=== PATIENT | male | born 1955 | race Caucasian/White ===

== ENCOUNTER 2016-02-20 12:29 | Outpatient (CLI) | payer OTHER ==
[2015-09-06 12:35] VITALS: O2SAT 99
== END 2016-02-20 12:30 | disposition home or self-care (01) | DRG 561 ==
LOC: CONVCARE 12:29
PROVIDERS: ATTEND Orthopaedic Surgery
DX: S72.301D Unspecified fracture of shaft of right femur, subsequent encounter for closed fracture with routine healing (principal)
CPT/HCPCS: 73552

== ENCOUNTER 2016-04-16 15:22 | Outpatient (CLI) | payer OTHER ==
[2015-09-06 12:35] VITALS: O2SAT 99
== END 2016-04-16 15:23 | disposition home or self-care (01) | DRG 561 ==
LOC: CONVCARE 15:22
PROVIDERS: ATTEND Orthopaedic Surgery
DX: S72.301D Unspecified fracture of shaft of right femur, subsequent encounter for closed fracture with routine healing (principal)
CPT/HCPCS: 73552

== ENCOUNTER 2016-07-16 06:28 | Emergency (ER) | payer OTHER ==
[2016-07-16 06:42] VITALS: TEMP 98.2
[2016-07-16] MEDS ORDERED: SODIUM CHLORIDE 0.9% 1000ML 1,000 ML IV ONE (06:51)
[2016-07-16] MEDS ORDERED: ONDANSETRON 4 MG ODT BU ONE (06:52)
[2016-07-16] MEDS ORDERED: KETOROLAC TROMETHAMINE 30 MG/ML SOL IV ONE (06:52)
[2016-07-16] MEDS ORDERED: KETOROLAC TROMETHAMINE 30 MG/ML SOL ONE (07:05)
[2016-07-16 07:24] LABS: BASOPHILS % (AUTO) 1 % (0-3); EOSINOPHILS % (AUTO) 4 % (0-9); HEMATOCRIT 38 % (39-53); MEAN CORPUSCULAR HGB CONC 35.2 gm/dl (32.0-36.0); MEAN CORPUSCULAR VOLUME 86 fL (80-100); MONOCYTES % (AUTO) 5.6 % (0-12); NEUTROPHILS % (AUTO) 74.7 % (37-80)
[2016-07-16 07:29] LABS: CALCIUM 8.6 mg/dl (8.5-10.1); POTASSIUM 5.1 mMol/L (3.5-5.1)
[2016-07-16] MEDS ORDERED: INSULIN HUMAN REGULAR 100 U/ML SOL SC ONE (07:41)
[2016-07-16 07:52] VITALS: O2SAT 98
[2016-07-16 07:53] VITALS: BP 129/64; PULSE 73; RESP 16
[2016-07-16] MEDS ORDERED: INSULIN HUMAN REGULAR 100 U/ML SOL ONE (08:02)
== END 2016-07-16 08:53 | disposition home or self-care (01) | DRG 103 ==
LOC: ED 06:28
DX: R51 Headache (principal); E11.65 Type 2 diabetes mellitus with hyperglycemia; Z79.84 Long term (current) use of oral hypoglycemic drugs; E86.0 Dehydration
CPT/HCPCS: 36415; 80048; 85025; 96365; 96372; 96374; 99284; 99285; J1815; J1885

== ENCOUNTER 2017-04-25 07:28 | Emergency (ER) | payer OTHER ==
[2017-04-25] MEDS ORDERED: ASPIRIN 81 MG CHEWABLE CTB PO ONE (07:45)
[2017-04-25] MEDS ORDERED: METOPROLOL TARTRATE 25 MG TAB PO ONE (07:46)
[2017-04-25] MEDS ORDERED: ASPIRIN 81 MG CHEWABLE CTB ONE (07:47)
[2017-04-25] MEDS ORDERED: NITROGLYCERIN 0.4 MG TAB SL ONE (07:47)
[2017-04-25] MEDS: NITROGLYCERIN 0.4 MG TAB SL PRN ×3 (07:49→08:22)
[2017-04-25 07:52] LABS: BASOPHILS % (AUTO) 1 % (0-3); EOSINOPHILS % (AUTO) 2 % (0-9); HEMATOCRIT 42 % (39-53); MEAN CORPUSCULAR HGB CONC 33.7 gm/dl (32.0-36.0); MEAN CORPUSCULAR VOLUME 90 fL (80-100); MONOCYTES % (AUTO) 7.5 % (0-12); NEUTROPHILS % (AUTO) 70.9 % (37-80)
[2017-04-25 08:06] LABS: ALBUMIN 3.5 gm/dl (3.4-5.0); ALT 55 IU/L (14-63); CALCIUM 9.3 mg/dl (8.5-10.1); GLOM FILT RATE 65 mL/min (>60); POTASSIUM 4.6 mMol/L (3.5-5.1); SODIUM 140 mMol/L (136-145)
[2017-04-25] MEDS ORDERED: NITROGLYCERIN 0.1 MG/HR TD ONE (08:40)
[2017-04-25] MEDS ORDERED: NITROGLYCERIN 0.4 MG/HOUR PATCH TD ONE (08:40)
[2017-04-25] MEDS ORDERED: NITROGLYCERIN 0.1 MG/HR ONE (08:43)
[2017-04-25] MEDS ORDERED: ENOXAPARIN 100 MG SOL SC ONE ×2 (08:49→08:56)
[2017-04-25] MEDS ORDERED: TICAGRELOR 90 MG TAB PO ONE ×2 (08:50→08:56)
[2017-04-25] MEDS ORDERED: METOPROLOL TARTRATE 25 MG TAB ONE (08:52)
[2017-04-25 09:10] VITALS: TEMP 99.1
[2017-04-25 09:31] VITALS: BP 157/88; PULSE 93; RESP 14; O2SAT 97
== END 2017-04-25 09:41 | disposition short-term general hospital (02) | DRG 311 ==
LOC: ED 07:28
DX: I20.0 Unstable angina (principal)
CPT/HCPCS: 71045; 80053; 84484; 85025; 85378; 85610; 85730; 93005; 99285; J1650; A9270-GY

== ENCOUNTER 2017-09-18 05:40 | Emergency (ER) | payer OTHER ==
[2017-09-18] MEDS ORDERED: SODIUM CHLORIDE 0.9% 1000ML 1,000 ML IV ONE ×2 (06:05→06:06)
[2017-09-18] MEDS ORDERED: LISINOPRIL 5 MG TAB PO ONE ×2 (06:06→07:08)
[2017-09-18] MEDS ORDERED: LISINOPRIL 5 MG TAB ONE ×2 (06:12→07:15)
[2017-09-18 06:30] LABS: BASOPHILS % (AUTO) 2 % (0-3); EOSINOPHILS % (AUTO) 3 % (0-9); HEMATOCRIT 40 % (39-53); HEMOGLOBIN 12.9 gm/dl (13.5-17.7); LYMPHOCYTES % (AUTO) 9.4 % (10-50); MEAN CORPUSCULAR HEMOGLOBIN 28.5 pg (27.0-32.0); MEAN CORPUSCULAR HGB CONC 32.6 gm/dl (32.0-36.0); MEAN CORPUSCULAR VOLUME 88 fL (80-100); MONOCYTES % (AUTO) 7.4 % (0-12); NEUTROPHILS % (AUTO) 78.2 % (37-80)
[2017-09-18 06:33] LABS: ALBUMIN 3.4 gm/dl (3.4-5.0); BILIRUBIN,TOTAL 0.4 mg/dl (0.2-1.0); CALCIUM 8.6 mg/dl (8.5-10.1); CREATININE 1.18 mg/dl (0.80-1.30); CRP INFLAMMATORY 0.1 mg/dl (0.00-0.33); POTASSIUM 4.7 mMol/L (3.5-5.1); THYROID STIMULATING HORMONE 3.32 uIU/ml (0.358-3.740); TOTAL PROTEIN 7.1 gm/dl (6.4-8.2)
[2017-09-18 06:38] LABS: APPEARANCE,URINE Clear; BILIRUBIN,URINE NEGATIVE (NEGATIVE); COLOR,URINE Yellow; GLUCOSE, URINE (UA) 2+ (NEGATIVE); KETONES,URINE NEGATIVE (NEGATIVE); LEUKOCYTE ESTERASE ,URINE NEGATIVE (NEGATIVE); NITRATE,URINE NEGATIVE (NEGATIVE); OCCULT BLOOD,URINE TRACE INTACT (NEG-TRACE); PH,URINE 5.5; UROBILINOGEN,URINE 0.2 (0.2-1.0 EU)
[2017-09-18 06:48] LABS: BACTERIA NEGATIVE (< 1+); CRYSTALS NEGATIVE (0-3 AVE/HPF); EPITHELIAL CELLS NEGATIVE (SQUAMOUS); WBC,URINE NEG (0-5AV/HPF)
[2017-09-18 07:11] VITALS: O2SAT 99
[2017-09-18 09:20] VITALS: BP 161/90; PULSE 74; RESP 18; TEMP 97.4
== END 2017-09-18 09:10 | disposition home or self-care (01) | DRG 948 ==
LOC: ED 05:40
DX: R53.83 Other fatigue (principal); E11.9 Type 2 diabetes mellitus without complications; I10 Essential (primary) hypertension; E78.5 Hyperlipidemia, unspecified; E03.9 Hypothyroidism, unspecified; Z72.820 Sleep deprivation
CPT/HCPCS: 36415; 70551; 80053; 81001; 84443; 85025; 96365; 99283; 99285; A9270-GY

== ENCOUNTER 2017-10-09 07:27 | Day surgery (SDC) | payer OTHER ==
[2017-10-09] MEDS ORDERED: LIDOCAINE HCL 1% MPF 30 SOL ONE (07:52)
[2017-10-09] MEDS ORDERED: PROPOFOL 500 MG/50 ML EMU IV ONE (07:52)
[2017-10-09 09:29] VITALS: RESP 18
[2017-10-09 09:45] VITALS: BP 146/81; PULSE 74; TEMP 97.4; O2SAT 99
== END 2017-10-09 10:10 | disposition home or self-care (01) | DRG 638 ==
LOC: SURG 07:27
PROVIDERS: ATTEND Surgery
DX: E11.9 Type 2 diabetes mellitus without complications (principal); K57.32 Diverticulitis of large intestine without perforation or abscess without bleeding; D50.9 Iron deficiency anemia, unspecified; Z83.71 Family history of colonic polyps; D12.0 Benign neoplasm of cecum; D12.5 Benign neoplasm of sigmoid colon; D12.3 Benign neoplasm of transverse colon; K63.5 Polyp of colon
CPT/HCPCS: 82962; 99001; J2001; J2704

== ENCOUNTER 2017-11-20 06:19 | Emergency (ER) | payer OTHER ==
[2017-11-20 06:26] VITALS: RESP 22; TEMP 96
[2017-11-20 07:20] LABS: BASOPHILS % (AUTO) 0 % (0-3); EOSINOPHILS % (AUTO) 4 % (0-9); HEMATOCRIT 36 % (39-53); HEMOGLOBIN 11.8 gm/dl (13.5-17.7); LYMPHOCYTES % (AUTO) 12.6 % (10-50); MEAN CORPUSCULAR HGB CONC 33.1 gm/dl (32.0-36.0); MEAN CORPUSCULAR VOLUME 87 fL (80-100); MONOCYTES % (AUTO) 6.8 % (0-12); NEUTROPHILS % (AUTO) 76.2 % (37-80)
[2017-11-20 07:46] LABS: ALBUMIN 3.2 gm/dl (3.4-5.0); BILIRUBIN,TOTAL 0.6 mg/dl (0.2-1.0); CALCIUM 8.7 mg/dl (8.5-10.1); CARBON DIOXIDE 22.7 mEq/L (21-32); CREATININE 1.22 mg/dl (0.80-1.30); THYROID STIMULATING HORMONE 2.601 uIU/ml (0.358-3.740); TOTAL PROTEIN 6.9 gm/dl (6.4-8.2)
[2017-11-20 07:52] LABS: APPEARANCE,URINE Clear; BILIRUBIN,URINE NEGATIVE (NEGATIVE); COLOR,URINE Yellow; GLUCOSE, URINE (UA) 2+ (NEGATIVE); KETONES,URINE NEGATIVE (NEGATIVE); LEUKOCYTE ESTERASE ,URINE NEGATIVE (NEGATIVE); NITRATE,URINE NEGATIVE (NEGATIVE); OCCULT BLOOD,URINE NEGATIVE (NEG-TRACE); UROBILINOGEN,URINE 0.2 (0.2-1.0 EU)
[2017-11-20 08:05] LABS: BACTERIA TRACE (< 1+); CRYSTALS NEGATIVE (0-3 AVE/HPF); EPITHELIAL CELLS 0-1 (SQUAMOUS); RBC,URINE 0-1 (0-3AV/HPF); WBC,URINE 0-1 (0-5AV/HPF)
[2017-11-20] MEDS ORDERED: SODIUM CHLORIDE 0.9% 1000ML 1,000 ML IV ONE (08:15)
[2017-11-20] MEDS ORDERED: KETOROLAC TROMETHAMINE 30 MG/ML SOL IV ONE (10:05)
[2017-11-20] MEDS ORDERED: KETOROLAC TROMETHAMINE 30 MG/ML SOL ONE (10:11)
[2017-11-20 11:08] VITALS: BP 161/95; PULSE 70; O2SAT 97
== END 2017-11-20 10:45 | disposition home or self-care (01) | DRG 103 ==
LOC: ED 06:19
DX: R51 Headache (principal)
CPT/HCPCS: 36415; 80053; 81001; 84443; 85025; 96365; 96374; 99284; 99285; J1885